=== PATIENT | male | born 1995 | race Caucasian/White ===

== ENCOUNTER → 2019-08-03 | Outpatient (CLI) | payer BC ==
[2019-08-07 06:27] LABS: ALTERNARIA TENUIS CNT <0.35 kU/L (<0.35); ASPERGILLUS FUMIGATUS AL COUNT <0.35 kU/L (<0.35); BOX ELDER-MAPLE ALLERGEN COUNT 2.91 kU/L (()); CAT DANDER ALLERGEN COUNT <0.35 kU/L (<0.35); CLADOSPORIUM ALLERGEN COUNT <0.35 kU/L (<0.35); COCKROACH ALLERGEN COUNT <0.35 kU/L (<0.35); COTTONWOOD TREE ALLERGEN COUNT 1.51 kU/L (()); DOG DANDER ALLERGEN COUNT <0.35 kU/L (<0.35); DUST MITES (D.F.) ALLERG COUNT 3.46 kU/L (()); DUST MITES (D.P.) ALLERG COUNT 2.58 kU/L (()); ELM TREE ALLERGEN COUNT 2.15 kU/L (()); FIREBUSH ALLERGEN COUNT 1.27 kU/L (()); OAK ALLERGEN COUNT 1.35 kU/L (()); ROUGH MARSH ELDER ALLERG COUNT 1.79 kU/L (()); RUSSIAN THISTLE ALLERGEN COUNT 1.15 kU/L (())
== END ==
LOC: LAB 11:20
PROVIDERS: Family Medicine
DX: J30.9 Allergic rhinitis, unspecified (principal); L20.9 Atopic dermatitis, unspecified

== ENCOUNTER → 2020-06-03 | Outpatient (CLI) | payer BC | LOC: LAB 09:17 | DX: J02.9 Acute pharyngitis, unspecified (principal); R51.9 Headache, unspecified; M79.10 Myalgia, unspecified site; R19.7 Diarrhea, unspecified; Z20.828 Contact with and (suspected) exposure to other viral communicable diseases ==

== ENCOUNTER → 2020-08-04 | Outpatient (CLI) | payer BC | LOC: LAB 12:10 | DX: U07.1 COVID-19 (principal) ==

== ENCOUNTER → 2020-09-11 | Outpatient (REF) | LOC: LAB 09:36 | DX: Z01.89 Encounter for other specified special examinations (principal) ==

== ENCOUNTER → 2020-10-17 | Outpatient (CLI) | payer BC | LOC: LAB 16:51 | DX: R53.83 Other fatigue (principal) ==

== ENCOUNTER 2021-05-24 09:11 | Emergency (ER) | payer BC ==
[2021-05-24 09:25] VITALS: BP 146/77
== END 2021-05-24 10:27 | disposition home or self-care (01) ==
LOC: ED 09:11
DX: S93.401A Sprain of unspecified ligament of right ankle, initial encounter (principal); X50.9XXA Other and unspecified overexertion or strenuous movements or postures, initial encounter
CPT/HCPCS: 15970; L4386

== ENCOUNTER 2021-10-01 11:40 | Emergency (ER) | payer BC ==
[~2021-10-01] VITALS: Ht 172.7 cm; Wt 114.5 kg
[2021-10-01] MEDS ORDERED: FLONASE ALLERG9.9 ML NS (11:51)
[2021-10-01 12:16] LABS: BASO # 0.02 K/mm3 (0.02-0.10); EOS # 0.16 K/mm3 (0.04-0.40); EOS % 1.4 % (0.0-4.0); HEMATOCRIT 47.4 % (42.0-52.0); HEMOGLOBIN 16.9 g/dL (13.5-18.0); LYMPH# 1.21 K/mm3 (1.50-4.00); MEAN CELL VOLUME 82 fl (78-100); MEAN CORPUSCULAR HEMOGLOBIN 29 pg (27-31); MEAN CORPUSCULAR HGB CONC 36 g/dL (33-37); MEAN PLATELET VOLUME 9.6 fl (7.4-10.4); MONO # 0.82 K/mm3 (0.20-0.80); NEU # 9.14 K/mm3 (1.40-6.50); PLATELET COUNT 256 K/mm3 (130-400); RED BLOOD COUNT 5.78 M/mm3 (4.20-5.60); WHITE BLOOD COUNT 11.4 K/mm3 (4.8-10.8)
[2021-10-01 12:28] LABS: ALBUMIN 4.5 g/dL (3.5-5.0)
[2021-10-01 12:29] LABS: POTASSIUM 3.9 mmol/L (3.5-5.1)
[2021-10-01 12:30] LABS: CALCIUM 9.6 mg/dL (8.3-10.5)
[2021-10-01 12:31] LABS: TOTAL PROTEIN 7.5 g/dL (6.4-8.3)
[2021-10-01 12:33] LABS: TOTAL BILIRUBIN 0.7 mg/dL (0.2-1.2)
[2021-10-01 15:15] VITALS: BP 141/75
== END 2021-10-01 15:15 | disposition short-term general hospital (02) ==
LOC: ED 11:40
PROVIDERS: Physician Assistant
DX: K35.80 Unspecified acute appendicitis (principal); S93.401A Sprain of unspecified ligament of right ankle, initial encounter; X58.XXXA Exposure to other specified factors, initial encounter
CPT/HCPCS: Q9967